=== PATIENT | male | born 1945 | race Caucasian/White ===

== ENCOUNTER 2018-11-23 14:00 | Outpatient (CLI) | payer OTHER, SELFPAY ==
[2018-11-23] VITALS (8 sets, daily range): BP systolic 127–159; BP diastolic 62–71; PULSE 56–67; RESP 16; TEMP 36.2; O2SAT 95–98
--- NOTE | 2018-11-23 14:02 | DI.RAD.S_ITS ---
PROCEDURE: PAIN L/S TRANSFORAMINAL INJECT INDICATIONS: SPONDYLOSIS FINDINGS: Fluoroscopic spot filming was performed to verify placement of spinal needles at the L3-L4 level(s), as labeled on the films. Appropriate location(s) of the needle tip(s) was confirmed by injection of iodinated contrast. Dictated by: Beau Flores M.D. on 11/24/2018 at 10:13 Approved by: Beau Flores M.D. on 11/24/2018 at 10:13
--- NOTE | 2018-11-23 14:35 | PM.PROC.1 ---
Procedures Date/Time Date of procedure: 11/23/18 Time of procedure: 14:53 General Procedure description: PROVIDER: Anthony Gilmore DO Operative Note PREOP DIAGNOSIS 1. FORAMINAL STENOSIS WITH LE SYMPTOMS, POST OP DIAGNOSIS 1. FORAMINAL STENOSIS WITH LE SYMPTOMS, PROCEDURES 1. FLUOROSCOPICALLY GUIDED CONTRAST CONTROLLED TRANSFORAMINAL EPIDURAL STEROID INJECTION - LEFT L3/4 TFESI SURGEON: Anthony Gilmore DO INDICATIONS Macho is referred by for treatment of Foraminal Stenosis with left LE Symptoms FINDINGS Foraminal Nerve Root Compression secondary to disc disease and facet hypertrophy DESCRIPTION OF PROCEDURE Following review of allergy and review of potential side effects and complications, including, but not necessarily limited to, infection, allergic reaction, local tissue breakdown, stroke, temporary or permanent nerve injury, paralysis, and possible , the patient indicated that the patient understood and agreed to proceed. An informed consent document was signed by the patient, witnessed by a nurse, and placed in the patient's chart. Additionally, other treatment options including medications, modalities, and physical therapy were reviewed with the patient. After review of previous anaesthesic history and IV conscious sedation the patient was deemed safe to proceed with todays procedure with IV conscious sedation as ASA class II designation. Safety time-out was performed to confirm patient ID, procedure to be performed and site of procedure. IV sedation was accomplished with a combination of 2mg of Versed and 50mcg of Fentanyl was administered by the RN after DO order, titrated to patient comfort during the course of the procedure while the patient remained responsive to all verbal commands In the prone position following sterile prep and drape of the lumbar region, the left L3/4 posterior neuroforamen was identified fluoroscopically. The skin was anesthetized via a 25-gauge 1.5-inch needle with 1% lidocaine solution. At this point, a 25-gauge 3.5-inch spinal needle was atraumatically introduced and advanced under fluoroscopic guidance through the posterior left L3/4 neuroforamen to approximately the anterior aspect of the canal. Depth was confirmed on lateral view. Following negative aspiration, injection of approximately 1.5 cc of Isovue 200 under live fluoroscopy in the AP view confirmed excellent flow along the nerve root, into the epidural space without vascular or intrathecal uptake observed Radiological data, including multiple fluoroscopic views of the lumbosacral spine, reveal a spinal needle at the left L3/4 posterior neuroforamen. Subsequent views show flow of contrast material flowing superiorly and inferiorly along the nerve root confirming epidural flow. Subsequently, a test dose of 1.5 cc of 1% lidocaine solution was administered and patient was observed for two minutes for signs or symptoms of complications, including abdominal pain, shortness of breath, bilateral upper or lower extremity weakness, nausea and vomiting, prior to steroid injection. At this point, a total of 3cc or 18mg of betamethasone was injected without incident. The patient tolerated the procedure well without signs or symptoms of complications prior to transfer to the recovery area continued monitoring without incident. The patient was then transferred to the recovery area where they were observed for an appropriate time after the injection. The patient reported a VAS score of 7 prior to the procedure and a post-procedure VAS of 0. Total Fluoroscopy Time: 24.2 seconds Total Conscious Sedation Time: 24min POST OP INSTRUCTIONS The patient was provided a Pain Log to continue to record their response to the target-specific procedure prior to follow-up visit with their referring physician. Additionally, specific post-injection care instructions and a contact number to our office were provided if concerns arise regarding possible complications associated with the procedure are suspected. Anthony Gilmore DO Complications: none
[2018-11-23] MEDS: fentaNYL 100 MCG/2 ML INJ 50 MCG IV (14:44)
[2018-11-23] MEDS: MIDAZOLAM 5 MG/5 ML VIAL IV (14:44)
[2018-11-23] MEDS: BETAMETHASONE 30 MG/5 ML MDV 12 MG INJ (14:47)
[2018-11-23] MEDS: IOPAMIDOL 15 ML VIAL 3 ML INJ (14:47)
--- NOTE | 2018-11-23 14:52 | PC.NURSE ---
pt tolerated procedure well. Able to get up and get off table with standby assist. Transferred pt via wheelchair awake and alert to pre procedure room for continued monitoring with Coby SANTANA.
[2018-11-23] MEDS: BUPIVACAINE 0.25% (PF) VIAL 2 ML INJ (15:05)
== END 2018-11-23 15:26 | disposition home or self-care (01) ==
LOC: RAD 14:02
PROVIDERS: PCP Family Medicine; Visit Provider Physical Medicine & Rehabilitation
DX: M48.061 Spinal stenosis, lumbar region without neurogenic claudication (principal); M51.16 Intervertebral disc disorders with radiculopathy, lumbar region
CPT/HCPCS: 64483; 99152; J0702; J2250; J3010

== ENCOUNTER 2019-03-15 12:56 | Outpatient (CLI) | payer OTHER, SELFPAY ==
[2019-03-15] VITALS (8 sets, daily range): BP systolic 130–137; BP diastolic 59–93; PULSE 55–95; RESP 14–16; TEMP 36.2; O2SAT 96–98
--- NOTE | 2019-03-15 12:58 | DI.RAD.S_ITS ---
PROCEDURE: PAIN L/S TRANSFORAMINAL INJECT INDICATIONS: RADICULOPATHY FINDINGS: Fluoroscopic spot filming was performed to verify placement of spinal needles at the right L3-4 and L4-5 level(s), as labeled on the films. Appropriate location(s) of the needle tip(s) was confirmed by injection of iodinated contrast. IMPRESSION: Transforaminal injections of the right lower lumbar spine. Dictated by: Poppy Silva M.D. on 03/15/2019 at 17:04 Approved by: Poppy Silva M.D. on 03/15/2019 at 17:05
[2019-03-15] MEDS: MIDAZOLAM 5 MG/5 ML VIAL IV (13:59)
[2019-03-15] MEDS: fentaNYL 100 MCG/2 ML INJ 50 MCG IV (13:59)
[2019-03-15] MEDS: IOPAMIDOL 15 ML VIAL 3 ML INJ (14:07)
[2019-03-15] MEDS: BUPIVACAINE 0.25% (PF) VIAL 2 ML INJ (14:07)
[2019-03-15] MEDS: DEXAMETHASONE 10 MG/ML VIAL 20 MG INJ (14:08)
[2019-03-15] MEDS: BETAMETHASONE 30 MG/5 ML MDV 6 MG INJ (14:08)
--- NOTE | 2019-03-15 14:17 | P.PCN_ITS ---
Procedures Date/Time Date of procedure: 03/15/19 Time of procedure: 14:17 General Procedure description: PREOP DIAGNOSIS 1. FORMAINAL STENOSIS WITH LE SYMPTOMS POST OP DIAGNOSIS 1. FORMAINAL STENOSIS WITH LE SYMPTOMS PROCEDURES 1. FLUOROSCOPICALLY GUIDED CONTRAST CONTROLLED TRANSFORAMINAL EPIDURAL STEROID INJECTION - RIGHT L4/5 TFESI PHYSICIAN: Anthony Gilmore DO INDICATIONS: Macho is referred by for treatment of Foraminal Stenosis with Right LE Symptoms FINDINGS Foraminal Nerve Root Compression secondary to disc disease and facet hypertrophy DESCRIPTION OF PROCEDURE: Following review of allergy and review of potential side effects and complications, including, but not necessarily limited to, infection, allergic reaction, local tissue breakdown, stroke, temporary or permanent nerve injury, paralysis, and possible , the patient indicated that the patient understood and agreed to proceed. An informed consent document was signed by the patient, witnessed by a nurse, and placed in the patient's chart. Additionally, other treatment options including medications, modalities, and physical therapy were reviewed with the patient. After review of previous anaesthesic history and IV conscious sedation the patient was deemed safe to proceed with todays procedure with IV conscious sedation as ASA class II designation. Safety time-out was performed to confirm patient ID, procedure to be performed and site of procedure. IV sedation was accomplished with a combination of 2mg of Versed and 50mcg of Fentanyl was administered by the RN after DO order, titrated to patient comfort during the course of the procedure while the patient remained responsive to all verbal commands In the prone position following sterile prep and drape of the lumbar region, the Right L4/5 posterior neuroforamen was identified fluoroscopically. The skin was anesthetized via a 25-gauge 1.5-inch needle with 1% lidocaine solution. At this point, a 25-gauge 3.5-inch spinal needle was atraumatically introduced and advanced under fluoroscopic guidance through the posterior Right L4/5 neuroforamen to approximately the anterior aspect of the canal. Depth was confirmed on lateral view. Following negative aspiration, injection of approximately 1.5 cc of Isovue 200 under live fluoroscopy in the AP view confirmed excellent flow along the nerve root, into the epidural space without vascular or intrathecal uptake observed Radiological data, including multiple fluoroscopic views of the lumbosacral spine, reveal a spinal needle at the right L4/5 posterior neuroforamen. Subsequent views show flow of contrast material flowing superiorly and inferiorly along the nerve root confirming epidural flow. Subsequently, a test dose of 1.5 cc of 1% lidocaine solution was administered and patient was observed for two minutes for signs or symptoms of complications, including abdominal pain, shortness of breath, bilateral upper or lower extremity weakness, nausea and vomiting, prior to steroid injection. At this point, a total of 3cc or 20mg of dexamethasone and 6mg of betamethasone was injected without incident. The procedure tolerated the procedure well without signs or symptoms of complications prior to transfer to the recovery area continued monitoring without incident.The patient was then transferred to the recovery area where they were observed for an appropriate time after the injection. The patient reported a VAS score of 7 prior to the procedure and a post- procedure VAS of 0. Total Fluoroscopy Time: 20.9 seconds Total Conscious Sedation Time: 24min POST OP INSTRUCTIONS The patient was provided a Pain Log to continue to record their response to the target-specific procedure prior to follow-up visit with their referring physician. Additionally, specific post-injection care instructions and a contact number to our office were provided if concerns arise regarding possible complications associated with the procedure are suspected. Anthony Gilmore, Complications: none
--- NOTE | 2019-03-15 14:19 | PC.NURSE ---
Post procedure note: Patient tolerated procedure well. VSS, O2 sat WNL. Able to sit up and transfer to wheel chair without difficulties. No complaints of pain. 06/15 pain level. Transported to Post procedure monitoring. Handoff report given to Jayda Gustafson.
--- NOTE | 2019-03-15 14:21 | PC.NURSE ---
ACCEPTED CARE OF PT IN POST PROC AREA IN STABLE CONDITION
== END 2019-03-15 14:57 | disposition home or self-care (01) ==
LOC: RAD 12:57
PROVIDERS: PCP Family Medicine; Visit Provider Physical Medicine & Rehabilitation
DX: M48.07 Spinal stenosis, lumbosacral region (principal); M51.17 Intervertebral disc disorders with radiculopathy, lumbosacral region
CPT/HCPCS: 64483; 99152; J0702; J1100; J2250; J3010

== ENCOUNTER → 2020-10-20 11:12 | Outpatient (CLI) | payer OTHER, SELFPAY ==
[2020-10-20 17:06] LABS: COVID19 -Nasal RAPID Negative (Negative)
== END ==
PROVIDERS: PCP Family Medicine; Visit Provider Physical Medicine & Rehabilitation
DX: Z20.822 Contact with and (suspected) exposure to COVID-19 (principal)
CPT/HCPCS: 87635; C9803

== ENCOUNTER 2020-10-21 07:29 | Outpatient (CLI) | payer OTHER, SELFPAY ==
[2020-10-21] VITALS (10 sets, daily range): BP systolic 119–177; BP diastolic 56–79; PULSE 54–58; RESP 10–19; TEMP 36; O2SAT 95–98
--- NOTE | 2020-10-21 07:33 | DI.RAD.S_ITS ---
PROCEDURE: PAIN L/S TRANSFORAMINAL INJECT INDICATIONS: SPONDYLOSIS COMPARISON: Outside [facility], CR, XR LUMBAR SPINE 2 OR 3 VIEWS, 09/25/2020, 12:28. FINDINGS: Fluoroscopic spot filming was performed to verify placement of spinal needles at the L4-L5 level(s), as labeled on the films. Appropriate location(s) of the needle tip(s) was confirmed by injection of iodinated contrast. IMPRESSION: Fluoroscopy for pain management. Dictated by: Gretchen Diaz M.D. on 10/21/2020 at 9:18 Approved by: Gretchen Diaz M.D. on 10/21/2020 at 9:19
[2020-10-21] MEDS: fentaNYL 100 MCG/2 ML INJ 50 MCG IV (08:20)
[2020-10-21] MEDS: BETAMETHASONE 30 MG/5 ML MDV 6 MG INJ (08:26)
[2020-10-21] MEDS: BUPIVACAINE 0.25% (PF) VIAL 2 ML INJ (08:26)
[2020-10-21] MEDS: IOPAMIDOL 15 ML VIAL 3 ML INJ (08:27)
[2020-10-21] MEDS: DEXAMETHASONE 10 MG/ML VIAL 20 MG INJ (08:27)
[2020-10-21] MEDS: MIDAZOLAM 5 MG/5 ML VIAL IV (08:30)
--- NOTE | 2020-10-21 08:37 | P.PCN_ITS ---
Date/Time/Diagnoses Date of procedure: 10/21/20 Time of procedure: 08:37 Pre-procedure diagnosis: 1. FORAMINAL STENOSIS WITH LE SYMPTOMS Post-procedure diagnosis: same Procedure Notes Procedure: 1. FLUOROSCOPICALLY GUIDED CONTRAST CONTROLLED TRANSFORAMINAL EPIDURAL STEROID INJECTION - RIGHT L4/5 TFESI Indications: Macho is referred by Dr. Bear for treatment of Foraminal Stenosis with Right LE Symptoms Physician: Anthony Gilmore Total Fluoroscopy time (seconds): 22 Total sedation minutes: 15 Complications: none Procedure in detail & Post-procedure care: FINDINGS Foraminal Nerve Root Compression secondary to disc disease and facet hypertrophy DESCRIPTION OF PROCEDURE Following review of allergy and review of potential side effects and complications, including, but not necessarily limited to, infection, allergic reaction, local tissue breakdown, stroke, temporary or permanent nerve injury, paralysis, and possible , the patient indicated that the patient understood and agreed to proceed. An informed consent document was signed by the patient, witnessed by a nurse, and placed in the patient's chart. Additionally, other treatment options including medications, modalities, and physical therapy were reviewed with the patient. After review of previous anaesthesic history and IV conscious sedation the patient was deemed safe to proceed with today?s procedure with IV conscious sedation as ASA class II designation. Safety time-out was performed to confirm patient ID, procedure to be performed and site of procedure. IV sedation was accomplished with a combination of 3mg of Versed and 50mcg of Fentanyl was administered by the RN after DO order, titrated to patient comfort during the course of the procedure while the patient remained responsive to all verbal commands In the prone position following sterile prep and drape of the lumbar region, the right L4/5 posterior neuroforamen was identified fluoroscopically. The skin was anesthetized via a 25-gauge 1.5-inch needle with 1% lidocaine solution. At this point, a 22-gauge 5-inch spinal needle was atraumatically introduced and advanced under fluoroscopic guidance through the posterior right L4/5 n euroforamen to approximately the anterior aspect of the canal. Depth was confirmed on lateral view. Following negative aspiration, injection of approximately 1.5cc of Isovue 200 under live fluoroscopy in the AP view confirmed excellent flow along the nerve root, into the epidural space without vascular or intrathecal uptake observed Radiological data, including multiple fluoroscopic views of the lumbosacral spine, reveal a spinal needle at the right L4/5 posterior neuroforamen. Subsequent views show flow of contrast material flowing superiorly and inferiorly along the nerve root confirming epidural flow. Subsequently, a test dose of 1.5 cc of 1% lidocaine solution was administered and patient was observed for two minutes for signs or symptoms of complications, including abdominal pain, shortness of breath, bilateral upper or lower extremity weakness, nausea and vomiting, prior to steroid injection. At this point, a total of 3cc or 20mg of dexamethasone and 6mg of betamethasone was injected without incident. The procedure tolerated the procedure well without signs or symptoms of complications prior to transfer to the recovery area continued monitoring without incident. The patient was then transferred to the recovery area where they were observed for an appropriate time after the injection. The patient reported a VAS score of 7 prior to the procedure and a post-p rocedure VAS of 0. POST OP INSTRUCTIONS The patient was provided a Pain Log to continue to record their response to the target-specific procedure prior to follow-up visit with their referring physician. Additionally, specific post-injection care instructions and a contact number to our office were provided if concerns arise regarding possible complications associated with the procedure are suspected.
== END 2020-10-21 09:01 | disposition home or self-care (01) ==
LOC: RAD 07:33
PROVIDERS: PCP Family Medicine; Referring Provider Physical Medicine & Rehabilitation; Visit Provider Physical Medicine & Rehabilitation
DX: M48.061 Spinal stenosis, lumbar region without neurogenic claudication (principal); M51.16 Intervertebral disc disorders with radiculopathy, lumbar region
CPT/HCPCS: 64483; 99152; J0702; J1100; J2250; J3010

== ENCOUNTER → 2021-01-03 09:53 | Outpatient (CLI) | payer OTHER, SELFPAY ==
--- NOTE | 2021-01-03 09:54 | DI.MRI.S_ITS ---
PROCEDURE: MR LUMBAR SPINE WO CON INDICATIONS: Right L5 radiculopathy TECHNIQUE: Noncontrast sagittal T1 spin echo and T2 fast echo, sagittal STIR, axial T1 and T2 fast spin echo through the lumbar spine. In cases with scoliosis, additional coronal T2 fast spin echo may be performed. COMPARISON: Outside Film, CR, XR LUMBAR SPINE 2 OR 3 VIEWS, 09/25/2020, 12:28. [facility], MR, MR LUMBAR SPINE WO CON, 10/22/2016, 14:24. FINDINGS: Image quality: Excellent. Alignment and Curvature: There is trace L5-S1 anterolisthesis. There is trace L1-L2, L2-L3 and L3-L4 retrolisthesis. Convex left scoliosis of the lumbar spine is stable compared to prior plain film radiographs. Bones: Transitional anatomy with 6 lumbar type [id number] vertebral bodies and non-rudimentary S1-S2 disc. For purposes of this dictation the 6 lumbar type [id number] vertebral bodies will be designated L1 through S1 with the last non-rudimentary disc designated S1-S2. Reactive endplate changes noted adjacent to the L1-L2, L2-L3 and L3-L4 discs. No acute vertebral body compression fractures. Spinal Cord: Conus medullaris terminates at the L1-2 disc level. Visualized cord demonstrates normal signal and size. Paraspinous Soft Tissues: No paravertebral masses. T12-L1: Loss of disc signal. Minimal, diffuse disc bulge. No central stenosis. No neural foraminal narrowing. No neural compression. L1-L2: Loss of disc signal and height. Mild, diffuse disc bulge. Mild bilateral facet hypertrophy. Mild narrowing of the central canal. Mild right and moderate left neural foraminal narrowing. No neural compression. L2-L3: Loss of disc signal and height. Moderate, diffuse disc bulge. Mild bilateral facet hypertrophy. Mild narrowing of the central canal. Moderate bilateral neural foraminal narrowing. No neural compression. L3-L4: Loss of disc signal and height. Posterior disc osteophyte complex. Mild bilateral facet hypertrophy. Mild narrowing of the central canal. Moderate to severe right and moderate left neural foraminal narrowing. No neural compression. L4-L5: Loss of disc signal. Moderate, diffuse disc bulge. Moderate bilateral facet hypertrophy. Moderate ligamentum flavum hypertrophy. Moderate narrowing of the central canal. Moderate to severe bilateral neural foraminal narrowing. No neural compression. L5-S1: Loss of disc signal. Moderate, diffuse disc bulge. Severe bilateral facet hypertrophy. Severe narrowing of the central canal with compression of the nerve roots of the cauda equina. Severe bilateral neural foraminal narrowing with compression of the exiting L5 nerve roots. IMPRESSION: 1. Transitional anatomy with 6 lumbar type [id number] vertebral bodies and non-rudimentary S1-S2 disc. 2. Convex left scoliosis stable compared to prior plain film radiograph series. 3. Multilevel degenerative disc disease. 4. Multilevel facet arthropathy. 5. Severe L5-S1 central canal narrowing with compression of the nerve roots of the cauda equina. 6. Severe bilateral L5-S1 neural foraminal narrowing with compression of the exiting L5 nerve roots. Dictated by: Thea Rush MD, PhD on 01/05/2021 at 10:55 Approved by: Thea Rush MD, PhD on 01/05/2021 at 11:05
== END ==
PROVIDERS: PCP Family Medicine; Referring Provider Physical Medicine & Rehabilitation; Visit Provider Physical Medicine & Rehabilitation
DX: M51.16 Intervertebral disc disorders with radiculopathy, lumbar region (principal); M47.26 Other spondylosis with radiculopathy, lumbar region; M47.27 Other spondylosis with radiculopathy, lumbosacral region; M51.17 Intervertebral disc disorders with radiculopathy, lumbosacral region; M48.07 Spinal stenosis, lumbosacral region; M48.061 Spinal stenosis, lumbar region without neurogenic claudication; M43.16 Spondylolisthesis, lumbar region
CPT/HCPCS: 72148

== ENCOUNTER → 2021-01-27 08:13 | Outpatient (CLI) | payer OTHER, SELFPAY ==
[2021-01-27 12:05] LABS: COVID19 -Nasal RAPID Negative (Negative)
== END ==
PROVIDERS: PCP Family Medicine; Visit Provider Physical Medicine & Rehabilitation
DX: Z20.822 Contact with and (suspected) exposure to COVID-19 (principal)
CPT/HCPCS: 87635; C9803

== ENCOUNTER 2021-01-29 09:39 | Outpatient (CLI) | payer OTHER, SELFPAY ==
[2021-01-29] VITALS (8 sets, daily range): BP systolic 130–199; BP diastolic 60–90; PULSE 60–63; RESP 13–18; TEMP 36.2; O2SAT 92–98
--- NOTE | 2021-01-29 09:40 | DI.RAD.S_ITS ---
PROCEDURE: PAIN L/S TRANSFORAMINAL INJECT INDICATIONS: SPONDYLOSIS COMPARISON: [facility], , PAIN L/S TRANSFORAMINAL INJECT, 10/21/2020, 8:23. FINDINGS: Fluoroscopic spot filming was performed to verify placement of a spinal needle at the L5-S1 level, as labeled on the films. Appropriate location of the needle tip was confirmed by injection of iodinated contrast. IMPRESSION: No significant intraprocedural abnormality. Dictated by: Berny Dennis M.D. on 01/29/2021 at 10:31 Approved by: Berny Dennis M.D. on 01/29/2021 at 10:32
[2021-01-29] MEDS: MIDAZOLAM 5 MG/5 ML VIAL IV (10:47)
[2021-01-29] MEDS: fentaNYL 100 MCG/2 ML INJ 50 MCG IV (10:47)
[2021-01-29] MEDS: DEXAMETHASONE 10 MG/ML VIAL 20 MG INJ (10:55)
[2021-01-29] MEDS: BUPIVACAINE 0.25% (PF) VIAL 2 ML INJ (10:55)
[2021-01-29] MEDS: IOPAMIDOL 15 ML VIAL 3 ML INJ (10:55)
[2021-01-29] MEDS: BETAMETHASONE 30 MG/5 ML MDV 6 MG INJ (10:56)
--- NOTE | 2021-01-29 11:05 | P.PCN_ITS ---
Date/Time/Diagnoses Date of procedure: 01/29/21 Time of procedure: 11:05 Pre-procedure diagnosis: FORAMINAL STENOSIS WITH LE SYMPTOMS Post-procedure diagnosis: same Procedure Notes Procedure: 1. FLUOROSCOPICALLY GUIDED CONTRAST CONTROLLED TRANSFORAMINAL EPIDURAL STEROID INJECTION - RIGHT L5/S1 TFESI Indications: Macho is referred by Dr. Bear for treatment of Foraminal Stenosis with Right LE Symptoms Physician: Anthony Gilmore Total Fluoroscopy time (seconds): 22 Total sedation minutes: 15 Complications: none Procedure in detail & Post-procedure care: FINDINGS Foraminal Nerve Root Compression secondary to disc disease and facet hypertrophy DESCRIPTION OF PROCEDURE Following review of allergy and review of potential side effects and complications, including, but not necessarily limited to, infection, allergic reaction, local tissue breakdown, stroke, temporary or permanent nerve injury, paralysis, and possible , the patient indicated that the patient understood and agreed to proceed. An informed consent document was signed by the patient, witnessed by a nurse, and placed in the patient's chart. Additionally, other treatment options including medications, modalities, and physical therapy were reviewed with the patient. After review of previous anaesthesic history and IV conscious sedation the patient was deemed safe to proceed with today?s procedure with IV conscious sedation as ASA class II designation. Safety time-out was performed to confirm patient ID, procedure to be performed and site of procedure. IV sedation was accomplished with a combination of 2mg of Versed and 50mcg of Fentanyl was administered by the RN after DO order, titrated to patient comfort during the course of the procedure while the patient remained responsive to all verbal commands In the prone position following sterile prep and drape of the lumbar region, the right L5/S1 posterior neuroforamen was identified fluoroscopically. The skin was anesthetized via a 25-gauge 1.5-inch needle with 1% lidocaine solution. At this point, a 22-gauge 5-inch spinal needle was atraumatically introduced and advanced under fluoroscopic guidance through the posterior right L5/S1 neuroforamen to approximately the anterior aspect of the canal. Depth was confirmed on lateral view. Following negative aspiration, injection of approximately 1.5cc of Isovue 200 under live fluoroscopy in the AP view confirmed excellent flow along the nerve root, into the epidural space without vascular or intrathecal uptake observed Radiological data, including multiple fluoroscopic views of the lumbosacral spine, reveal a spinal needle at the right L5/S1 posterior neuroforamen. Subsequent views show flow of contrast material flowing superiorly and inferiorly along the nerve root confirming epidural flow. Subsequently, a test dose of 1.5 cc of 1% lidocaine solution was administered and patient was observed for two minutes for signs or symptoms of complications, including abdominal pain, shortness of breath, bilateral upper or lower extremity weakness, nausea and vomiting, prior to steroid injection. At this point, a total of 3cc or 20mg of dexamethasone and 80mg Depo medrol was injected without incident. The procedure tolerated the procedure well without signs or symptoms of complications prior to transfer to the recovery area continued monitoring without incident. The patient was then transferred to the recovery area where they were observed for an appropriate time after the injection. The patient reported a VAS score of 7 prior to the procedure and a post- procedure VAS of 0. POST OP INSTRUCTIONS The patient was provided a Pain Log to continue to record their response to the target-specific procedure prior to follow-up visit with their referring physician. Additionally, specific post-injection care instructions and a contact number to our office were provided if concerns arise regarding possible complications associated with the procedure are suspected.
--- NOTE | 2021-01-29 11:32 | PC.NURSE ---
Patient has slight weakness to right leg, reports he is steady on his, able to take steps with out difficulty. aware and able to help him in the house.
== END 2021-01-29 11:31 | disposition home or self-care (01) ==
LOC: RAD 09:39
PROVIDERS: PCP Family Medicine; Referring Provider Physical Medicine & Rehabilitation; Visit Provider Physical Medicine & Rehabilitation
DX: M48.07 Spinal stenosis, lumbosacral region (principal); M51.17 Intervertebral disc disorders with radiculopathy, lumbosacral region
CPT/HCPCS: 64483; 99152; J0702; J1100; J2250; J3010

== ENCOUNTER → 2021-02-24 08:28 | Outpatient (CLI) | payer OTHER, SELFPAY ==
[2021-02-24 12:30] LABS: COVID19 -Nasal RAPID Negative (Negative)
== END ==
PROVIDERS: PCP Family Medicine; Visit Provider Physical Medicine & Rehabilitation
DX: Z20.822 Contact with and (suspected) exposure to COVID-19 (principal)
CPT/HCPCS: 87635; C9803

== ENCOUNTER 2021-02-26 10:16 | Outpatient (CLI) | payer OTHER, SELFPAY ==
[2021-02-26] VITALS (8 sets, daily range): BP systolic 130–145; BP diastolic 60–70; PULSE 57–62; RESP 13–18; TEMP 36.3; O2SAT 94–96
--- NOTE | 2021-02-26 11:38 | DI.RAD.S_ITS ---
PROCEDURE: PAIN L/S FACET INJ/BLK 1ST BLAYNE COMPARISON: [facility], MR, MR LUMBAR SPINE WO CON, 01/03/2021, 10:40. [facility], XA, PAIN L/S TRANSFORAMINAL INJECT, 01/29/2021, 10:52. INDICATIONS: bilateral L3-4 L4-5 facet joint injection FINDINGS: Fluoroscopic spot filming was performed to verify placement of spinal needles at the L3-L4 level and the L4-L5 level on both sides, as labeled on the films. Appropriate location of the needle tips was confirmed by injection of iodinated contrast. Please note that this patient has transitional lumbar anatomy. Please correlate with intraprocedural findings for the intended levels. IMPRESSION: Intraprocedural examination within normal limits. Dictated by: Berny Dennis M.D. on 02/26/2021 at 12:05 Approved by: Berny Dennis M.D. on 02/26/2021 at 12:07
[2021-02-26] MEDS: fentaNYL 100 MCG/2 ML INJ 50 MCG IV (11:45)
[2021-02-26] MEDS: MIDAZOLAM 5 MG/5 ML VIAL IV (11:45)
[2021-02-26] MEDS: IOPAMIDOL 15 ML VIAL 3 ML INJ (11:50)
[2021-02-26] MEDS: BETAMETHASONE 30 MG/5 ML MDV 12 MG INJ (11:50)
[2021-02-26] MEDS: BUPIVACAINE 0.5% (PF) VIAL 5 ML INJ (11:50)
[2021-02-26] MEDS: LIDOCAINE 1% 20 ML 10 ML INJ (11:51)
--- NOTE | 2021-02-26 11:56 | P.PCN_ITS ---
Date/Time/Diagnoses Date of procedure: 02/26/21 Time of procedure: 11:56 Pre-procedure diagnosis: 1. FACET ARTHROPATHY 2. AXIAL LBP 3. MULTILEVEL DDD Post-procedure diagnosis: same Procedure Notes Procedure: 1. FLUORSCOPICALLY GUIDED CONTRAST CONTROLLED FACET JOINT INJECTIONS BILATERAL L3/4, L4/5 Indications: Macho is referred by Dr. Bear for treatment of Axial LBP Physician: Anthony Gilmore Total Fluoroscopy time (seconds): 9 Total sedation minutes: 9 Complications: none Procedure in detail & Post-procedure care: FINDINGS Multilevel Facet Arthropathy with Clinically significant axial LBP DESCRIPTION OF PROCEDURE Fluoroscopically guided, contrast-controlled bilateral L3/4, L4/5 facet joint injections. Following review of allergy and review of potential side effects and complications, including, but not necessarily limited to, infection, allergic reaction, local tissue breakdown, stroke, temporary or permanent nerve injury, paralysis, and possible , the patient indicated that the patient understood and agreed to proceed. An informed consent document was signed by the patient, witnessed by a nurse, and placed in the patient's chart. Additionally, other t reatment options including medications, modalities, and physical therapy were reviewed with the patient. After review of previous anaesthesic history and IV conscious sedation the patient was deemed safe to proceed with today's procedure with IV conscious sedation as ASA class II designation. Safety time-out was performed to confirm patient ID, procedure to be performed and site of procedure. IV sedation was accomplished with a combination of 2mg of Versed and 50mcg of Fentanyl was administered by the RN after DO order, titrated to patient comfort during the course of the procedure while the patient remained responsive to all verbal commands. In the prone position, following sterile prep and drape of the lumbar region, the posterior aspect of the L3/4, L4/5 facet joints were identified f luoroscopically. The skin was anesthetized via a 25-gauge 1.5-inch needle with 1% lidocaine solution into the corresponding facet joints. At this point, a 22- gauge 3.5-inch spinal needle was atraumatically introduced and advanced under fluoroscopic guidance into the corresponding facet joints. Following negative aspiration, injections of approximately 0.2cc of Isovue 200 confirmed interarticular placement without vascular uptake. The identical procedure was then performed at the L3/4, L4/5 facet joints on the left. Radiological data, including multiple fluoroscopic views of the lumbosacral spine, reveal a spinal needle at the L3/4, L4/5 facet joints bilaterally. Subsequent views show flow of contrast material both superiorly and inferiorly within the joint space without vascular or intrathecal uptake. At this point, a total of 0.5cc including a mixture of 0.25cc Marcaine and 0.25cc betamethasone was injected without complication into each of the corresponding facet joints. The patient tolerated the procedure well without signs or symptoms of complications prior to transfer to the recovery area continued monitoring without incident. The patient was then transferred to the recovery area where they were observed for an appropriate period of time after the injection. The patient reported a VAS score of 7 prior to the procedure and a post-procedure VAS of 0. POST OP INSTRUCTIONS The patient was provided a Pain Log to continue to record their response to the target-specific procedure prior to follow-up visit with their referring physic suman. Additionally, specific post-injection care instructions and a contact number to our office were provided if concerns arise regarding possible complications associated with the procedure are suspected.
== END 2021-02-26 12:25 | disposition home or self-care (01) ==
PROVIDERS: PCP Family Medicine; Referring Provider Physical Medicine & Rehabilitation; Visit Provider Physical Medicine & Rehabilitation
DX: M47.816 Spondylosis without myelopathy or radiculopathy, lumbar region (principal); M51.36 Other intervertebral disc degeneration, lumbar region; M54.5 Low back pain
CPT/HCPCS: 64493; 64494; J0702; J2250; J3010

== ENCOUNTER → 2021-06-22 11:44 | Outpatient (CLI) | payer OTHER, SELFPAY ==
[2021-06-22 15:04] LABS: COVID19 -Nasal RAPID Negative (Negative)
== END ==
PROVIDERS: PCP Family Medicine; Referring Provider Physical Medicine & Rehabilitation; Visit Provider Physical Medicine & Rehabilitation
DX: Z20.822 Contact with and (suspected) exposure to COVID-19 (principal)
CPT/HCPCS: 87635; C9803

== ENCOUNTER 2021-06-23 07:55 | Outpatient (CLI) | payer OTHER, SELFPAY ==
[2021-06-23] VITALS (8 sets, daily range): BP systolic 116–165; BP diastolic 54–66; PULSE 47–57; RESP 12–18; TEMP 35.7; O2SAT 94–98
--- NOTE | 2021-06-23 07:58 | DI.RAD.S_ITS ---
PROCEDURE: PAIN L/S FACET INJ/BLK 1ST [facility]LAY[facility] COMPARISON: [facility], , PAIN L/S FACET INJ/BLK 1ST BLAYNE, 02/26/2021, 11:47. INDICATIONS: SPONDYLOSIS FINDINGS: Fluoroscopic spot filming was performed to verify placement of spinal needles on both sides at the L4, L5, and S1 levels, as labeled on the films. Appropriate location of the needle tips was confirmed by injection of iodinated contrast. IMPRESSION: Intraprocedural examination within normal limits. Dictated by: Berny Dennis M.D. on 06/23/2021 at 9:12 Approved by: Berny Dennis M.D. on 06/23/2021 at 9:17
--- NOTE | 2021-06-23 07:58 | DI.RAD.S_ITS ---
PROCEDURE: XR KNEE RT 3V INDICATIONS: right knee djd TECHNIQUE: Three views of the knee were acquired. COMPARISON: None. FINDINGS: Bones: No fractures or dislocations. Mild medial and lateral compartment joint space loss and moderate marginal spur formation. Severe patellofemoral compartment joint space loss and spurring. Trace lateral patellar subluxation. No suspicious bony lesions. Soft tissues: Small suprapatellar joint effusion. Wedge-shaped calcification seen posterior to the knee joint on the lateral view and lateral to the joint line on the AP view. IMPRESSION: 1. Tricompartment osteoarthritic changes, most severe in the patellofemoral compartment. 2. Meniscal calcification or chondrocalcinosis in the posterolateral compartment. 3. Small knee joint effusion. Dictated by: Dania Nails M.D. on 06/23/2021 at 10:04 Approved by: Dania Nails M.D. on 06/23/2021 at 10:12
[2021-06-23] MEDS: MIDAZOLAM 5 MG/5 ML VIAL IV (09:08)
[2021-06-23] MEDS: fentaNYL 100 MCG/2 ML INJ 50 MCG IV (09:17)
[2021-06-23] MEDS: IOPAMIDOL 15 ML VIAL 3 ML INJ (09:18)
[2021-06-23] MEDS: LIDOCAINE 1% 20 ML INJ (09:18)
[2021-06-23] MEDS: BUPIVACAINE 0.5% (PF) VIAL 5 ML INJ (09:18)
--- NOTE | 2021-06-23 09:27 | P.PCN_ITS ---
Date/Time/Diagnoses Date of procedure: 06/23/21 Time of procedure: 09:27 Pre-procedure diagnosis: 1. FACET ARTHROPATHY This procedure is found to meet the Governor's proclamation 20-24.2 regarding non urgent procedures. This patient meets multiple criteria for the procedure including continuing or worsening of significant or severe pain, combined with further deterioration of the patient's condition or overall health as well as delay in treatment would be expected to result in less positive ultimate medical outcome. Therefore the decision to perform the procedure in an outpatient hospital setting is found to be in accordance with guidelines of the proclamation. Post-procedure diagnosis: same Procedure Notes Procedure: 1. BILATERAL L3, L4 AND L5 DIAGNOSTIC MB BLOCKS Indications: Macho is referred by Dr. Bear for treatment of Bilateral Axial LBP. Physician: Anthony Gilmore Total Fluoroscopy time (seconds): 11 Total sedation minutes: 12 Complications: none Procedure in detail & Post-procedure care: DESCRIPTION OF PROCEDURE Fluoroscopically guided, contrast-controlled bilateral L3, L4 AND L5 medial branch blocks with 0.5cc of 0.5% Marcaine. Following review of allergy and review of potential side effects and complications, including, but not necessarily limited to, infection, allergic reaction, local tissue breakdown, nerve injury, paralysis, stroke and possible , the patient indicated that the patient understood and agreed to proceed. An informed consent document was signed by the patient, witnessed by a nurse, and placed in the patient's chart. After review of previous anaesthesic history and IV conscious sedation the patient was deemed safe to proceed with today's procedure with IV conscious sedation as ASA class II designation. Safety time-out was performed to confirm patient ID, procedure to be performed and site of procedure. IV sedation was accomplished with a combination of 2mg of Versed and 50mcg of Fentantyl was administered by the RN after DO order, titrated to patient comfort during the course of the procedure while the patient remained responsive to all verbal commands In the prone position, following sterile prep and drape of the lumbar region, the right L3, L4 AND L5 anatomical location of the medial branch of the dorsal ramus was identified fluoroscopically. Subsequently an anesthetic skin wheal using 1% lidocaine solution was initiated at each of the anatomical spots. Subsequently then a 22-gauge 3.5-inch spinal needle was atraumatically introduced and advanced under fluoroscopic guidance at each of the corresponding sites at the right L3, L4 and L5 MB. After negative aspiration, 0.2cc of Isovue 200 was injected, confirming placement without vascular or intrathecal uptake. Subsequently then 0.5cc of 0.5% Marcaine solution was injected at each of the corresponding sites at the right L3, L4 and L5 medial branch locations. The identical procedure was replicated on the left. The patient tolerated the procedure well without signs or symptoms of complications. The patient tolerated the procedure well without signs or symptoms of complications prior to transfer to the recovery area continued monitoring without incident. Post-procedure, the patient was monitored initiating provocative activities to measure the amount of relief from block of the facetogenic pain. The patient reported a VAS of 7 prior to the procedure and a post-procedure VAS of 1. It has been a pleasure to assist in the diagnostic and therapeutic care of your patient. POST OP INSTRUCTIONS The patient was provided with a Pain Log to complete over the next several hours and subsequent days prior to the patient's follow up with the ordering physician. 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 The patient is aware, was provided, once again, with a Pain Log and will follow up with the referring physician for review and clinical correlation
== END 2021-06-23 09:54 | disposition home or self-care (01) ==
PROVIDERS: PCP Family Medicine; Referring Provider Physical Medicine & Rehabilitation; Visit Provider Physical Medicine & Rehabilitation
DX: M47.816 Spondylosis without myelopathy or radiculopathy, lumbar region (principal); M17.11 Unilateral primary osteoarthritis, right knee
CPT/HCPCS: 64493; 64494; 73562; 99152; J2250; J3010